=== PATIENT | female | born 1975 | race Hispanic/Latino ===

== ENCOUNTER 2018-05-18 09:54 | Outpatient (CLI) | payer BC ==
--- NOTE | 2018-05-18 10:39 | Mammography Report ---
BILATERAL MAMMOGRAM: FINDINGS: There are scattered fibroglandular densities (approximately 25%-50% glandular). No mass, distortion, suspicious calcification, or skin change is seen. No significant change compared to prior exam in September 2015. CAD was utilized. IMPRESSION: Negative mammogram. There is no mammographic evidence of malignancy. RECOMMENDATION: Follow-up per ACS guidelines. BI-RADS CATEGORY: 1 = Negative ACR BI-RADS MAMMOGRAPHIC CODES: 0 = Needs additional imaging evaluation; 1 = Negative; 2 = Benign; 3 = Probably benign; 4 = Suspicious; 5 = Malignant; 6 = Known biopsy-proven malignancy COMMENT: 1. Dense breast tissue, i.e., adenosis, fibrocystic changes, etc., may obscure an underlying neoplasm. 2. Approximately 10% of cancers are not detected with mammography. 3. A negative mammography report should not delay biopsy if a clinically suspicious mass is present. COMMENT: Patient follow-up letters are generated in [employer].
--- NOTE | 2018-05-18 11:00 | Cat Scan Report ---
CT head without contrast: Sensation changes. Axial images demonstrates a generally unremarkable intracranial scan. There is no evidence of mass effect, hemorrhage, or extracerebral collection. Unremarkable ventricles. Normal visualized bony structures. Mucoperiosteal thickening of the partially imaged right maxillary sinus. The possibility of fluid in the sinus difficult to exclude. Impression: 1. Normal intracranial scan. 2. Abnormal right maxillary sinus.
--- NOTE | 2018-05-18 13:09 | Ultrasound Report ---
Pelvic ultrasound: Fibroids. Endovaginal and transabdominal imaging demonstrates an anteverted uterus it measures 3.8 x 4.9 x 7.7 cm. There are 3 hypodensities identified in the uterine fundus. These range in size from 1 cm to 1.3 cm. The 1.3 cm mass may be submucous in location. The endometrial thickness is 3.8 mm. The right ovary measures 3.2 cm in size and contains multiple follicles. The left ovary measures 2.7 cm and contains several small follicles. Both ovaries contain flow with color imaging. Impressions: Uterine fibroids one of which may be submucous in position.
== END 2018-05-18 09:55 | disposition home or self-care (01) ==
LOC: MAMMO 09:54
PROVIDERS: ATTEND Family Medicine
DX: Z12.31 Encounter for screening mammogram for malignant neoplasm of breast (principal); D25.9 Leiomyoma of uterus, unspecified; R43.8 Other disturbances of smell and taste
CPT/HCPCS: 70450; 76830; 76856; 77067